=== PATIENT | male | born 1995 | race Caucasian/White ===

== ENCOUNTER 2024-12-05 12:52 | Emergency (ER) | payer OTHER, SELFPAY ==
[2024-12-05 13:07] VITALS: BP 141/68; PULSE 76; RESP 18; TEMP 36.4; O2SAT 100
[2024-12-05] MEDS: TETANUS,DIPHTHERIA,AC PERTUSSIS ADULT (0.5 ML) BOOSTRIX IM (13:21)
[2024-12-05] MEDS: LIDOCAINE 1% LOCAL INJ 2 ML AMPUL 8 ML INFILTRATE (13:21)
--- NOTE | 2024-12-05 14:01 | ED.GENADULT ---
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 He has noted bleeding from the wound since that time. He applied pressure with a dressing. He denies considerable pain but has numbness in the left thumb, around the site of the laceration. No loss of range of motion. Date of last tetanus unknown. He is not diabetic. He is right-hand dominant. He is not on blood thinners. Related Data Allergies Allergy/AdvReac Type Severity Reaction Status Date / Time No Known Allergies Allergy Verified 12/05/24 13:09 Review of Systems Review of Systems: CONSTITUTIONAL: Denies fever, chills, or sweats. EYES: Denies visual changes, redness, or discharge. ENT: Denies rhinorrhea, congestion, sore throat, or otalgia. CARDIOVASCULAR: Denies chest pain, palpitations, or edema. RESPIRATORY: Denies cough or dyspnea. GASTROINTESTINAL: Denies abdominal pain, nausea, vomiting, or diarrhea. GENITOURINARY: Denies dysuria or hematuria. SKIN: reports left thumb laceration MUSCULOSKELETAL: Denies back pain, joint pain, or myalgia. NEUROLOGIC: Reports numbness in the left thumb. Denies headache, dizziness, or weakness. PSYCHIATRIC: Denies anxiety or depression. [facility] Past Medical History Medical History No pertinent past medical history Surgical History Surgical History No pertinent past surgical history Family History Family History Mother Family history non-contributory Social History Social History Smoking status: Current every day smoker Tobacco type: e-cigarettes/vaping Gender identity (if verbalized by the patient): Male Spiritual care concerns: No Exam Narrative: GENERAL: Well-appearing, well-nourished, and in no acute distress. HEAD: Normocephalic, atraumatic. EYES: PERRLA and EOMI. ENT: Nares clear, no rhinorrhea or epistaxis. Mucous membranes moist. Oropharynx without tonsillar hypertrophy exudate or other lesions. Bilateral TMs pearly kirby nonbulging NECK: Supple. No adenopathy or masses. No carotid bruits or JVD CHEST: Clear to auscultation. No respiratory distress. No wheezes rales or rhonchi HEART: Regular rate and rhythm. No murmur heard. Normal peripheral pulses. ABDOMEN: Soft, nontender, nondistended, normal active bowel sounds. EXTREMITIES: Normal range of motion. No edema. SKIN: Warm, dry, no rash. Approximately 3.5 cm linear laceration to the palmar aspect of left hand along the thumb. There is visible subcutaneous tissue. NEURO: No focal deficits. Alert and oriented x3. PSYCH: Normal mood and affect. Course Course Emergency Course: this is a 29-year-old male who presented for evaluation of laceration to the left thumb. He declined x-ray. No loss of range of motion and low likelihood for retained foreign body. Wound was thoroughly cleaned and closed with eight sutures. Patient tolerated well. Tetanus was updated. Advised on wound care. Will discharge with cephalexin. Follow-up with primary provider. Go to the ER for worsening symptoms. Patient in agreement with plan of care. Level of Care: Express Care Visit Vital Signs Vital signs: Vital Signs Temperature 36.4 C 12/05/24 13:07 Pulse Rate 76 12/05/24 13:07 Respiratory Rate 18 12/05/24 13:07 Blood Pressure 141/68 H 12/05/24 13:07 Pulse Oximetry 100 12/05/24 13:07 Oxygen Delivery Room Air 12/05/24 13:07 Temperature 36.4 C 12/05/24 13:07 Pulse Rate 76 12/05/24 13:07 Respiratory Rate 18 12/05/24 13:07 Blood Pressure 141/68 H 12/05/24 13:07 Pulse Oximetry 100 12/05/24 13:07 Oxygen Delivery Room Air 12/05/24 13:07 Procedures Laceration Laceration 1: Date: 12/05/24 Time: 14:10 Site: hand (left thumb) Side (If applicable): left Size (cm): 3.5 Description: linear Local Anesthetic: lidocaine 1% Amount of anesthesia used (mL): 14 Pre-repair: wound explored, irrigated and irrigated extensively ====== Skin Level ====== Skin layer closed with: nylon Size (cm): 4-0 and 5-0 Number of sutures: 8 Technique: simple, interrupted ====== Subcutaneous Layer ====== ====== Muscle Layer ====== ====== Tendon Layer ====== Medical Decision Making Vital Signs Vital Signs: Vital Signs Temperature 36.4 C 12/05/24 13:07 Pulse Rate 76 12/05/24 13:07 Respiratory Rate 18 12/05/24 13:07 Blood Pressure 141/68 H 12/05/24 13:07 Pulse Oximetry 100 12/05/24 13:07 Oxygen Delivery Room Air 12/05/24 13:07 Temperature 36.4 C 12/05/24 13:07 Pulse Rate 76 12/05/24 13:07 Respiratory Rate 18 12/05/24 13:07 Blood Pressure 141/68 H 12/05/24 13:07 Pulse Oximetry 100 12/05/24 13:07 Oxygen Delivery Room Air 12/05/24 13:07 Discharge Plan Discharge Clinical Impression: Laceration of left thumb Patient Disposition: Home, Self-Care Condition: Stable Instructions: Antibiotic Form, Care For Your Stitches (ED), Finger Laceration (ED) Patient Language: Mexican Prescriptions: New cephalexin 500 mg capsule 500 mg PO Q6H Qty: 40 0RF Follow-up/Referrals: Edgar Molina MD [Physician] - Time of Disposition: 13:57
== END 2024-12-05 14:02 | disposition home or self-care (01) ==
PROVIDERS: Emergency Provider Nurse Practitioner
DX: S61.012A Laceration without foreign body of left thumb without damage to nail, initial encounter (principal); Z23 Encounter for immunization; F17.290 Nicotine dependence, other tobacco product, uncomplicated; W26.8XXA Contact with other sharp object(s), not elsewhere classified, initial encounter
CPT/HCPCS: 12002; 90471; 90715; 99213; G0463; J2003

== ENCOUNTER 2024-12-15 13:17 | Emergency (ER) | payer OTHER, SELFPAY ==
--- NOTE | 2024-12-15 13:38 | ED_ITS ---
HPI - Skin/Abscess/Foreign Bdy General Chief complaint: Skin/Abscess/Foreign Body Stated complaint: suture removal Time Seen by Provider: 12/15/24 13:37 Source: patient Mode of arrival: ambulatory Limitations: no limitations History of Present Illness HPI narrative: Patient is a 29-year-old male who presents for suture removal. Patient had 8 stitches placed on left thumb 12/05. Related Data Home Medications ?Medication ?Instructions ?Recorded ?Confirmed ?Last Taken ?Type No Home Medications 12/15/24 12/15/24 Unknown History Allergies Allergy/AdvReac Type Severity Reaction Status Date / Time No Known Allergies Allergy Verified 12/15/24 14:16 Review of Systems Review of Systems: All systems reviewed & are unremarkable except as noted in HPI and below Constitutional: Constitutional: Denies body ache(s), Denies chills, Denies fatigue, Denies fever(s), Denies headache(s), Denies malaise and Denies weakness Eyes: Eyes: Denies blurry vision, Denies irritation and Denies loss of vision ENT: Denies otalgia, Denies headache(s), Denies nasal discharge, Denies sinus pain and Denies sore throat Cardiovascular: Cardiovascular: Denies chest pain, Denies irregular heart rhythm and Denies dyspnea Respiratory: Respiratory: Denies dyspnea Gastrointestinal: Gastrointestinal: Denies abdominal pain, Denies melena, Denies hematochezia, Denies diarrhea, Denies nausea and Denies vomiting Musculoskeletal: Musculoskeletal: Denies back pain, Denies myalgias and Denies arthralgias Integumentary/Breasts: Skin/Breast: Denies pruritus, Denies rash and Reports wounds Neurologic: Denies headache(s), Denies loss of vision and Denies weakness Psychiatric: Psychiatric: Reports no additional psychiatric complaints Endocrine: Endocrine: Denies fatigue PMFSH Past Medical History Medical History No pertinent past medical history Surgical History Surgical History No pertinent past surgical history Family History Family History Mother Family history non-contributory Social History Social History (Reviewed 12/15/24 @ 14:15 by NIRU Zaldivar Smoking status: Current every day smoker Tobacco type: e-cigarettes/vaping Gender identity (if verbalized by the patient): Male Spiritual care concerns: No Comments At time of signature, agree with nursing past medical, surgical, social and family history. There is no relevant family history pertinent to the presenting complaint. Exam Const: General: cooperative, healthy appearing, comfortable, no acute distress and well nourished Nutritional Appearance: well nourished Orientation/consciousness: patient oriented x3 Limitations: no limitations HENMT: Head: normal to inspection, normocephalic and atraumatic Ears: hearing grossly normal bilaterally and external ears normal Face/Nose/Sinus: Normal external nose present, normal facial exam and face symmetric Face and sinus: normal facial exam and face symmetric Mouth: Yes lip normal Eyes: General: appearance normal, both eyes and all related structures Alignment and Position: alignment normal and position normal Periorbital: periorbital findings normal Eyelids: eyelids normal Pupils: Equal, round and reactive pupils present EOM: EOMs intact bilaterally Neck: Neck: normal visual inspection, full ROM and supple Chest: Chest palpation & inspection: normal inspection of the chest Resp: Effort & Inspection: normal respiratory effort and able to speak in complete sentences Auscultation: clear to auscultation bilaterally Cardio: Rate: regular rate Rhythm: regular rhythm Heart sounds: S1 normal heart sound present and S2 normal heart sound present GI: Inspection: normal to inspection Skin: General skin exam: normal color and no rashes or lesions noted Neuro: General: patient oriented x3 and moves all extremities Cranial nerves: Yes Equal, round and reactive pupils present Speech: normal speech Gait exam (Neuro): Normal gait present Extrem: General: normal to inspection, full ROM and no edema Left upper extremity: hand laceration (Laceration to left thumb healing well) Psych: Appearance: grossly normal and well kempt Mental Status: mental status grossly normal Speech and movement: Normal speech and movement present Affect: normal affect Attitude: cooperative Thought process: Normal thought process present Course Course Emergency Course: Patient is aware of diagnosis, understands and agrees to treatment plan. Anticipatory guidance given. Patient agrees to follow-up as directed and is awar e of reasons to seek care at the emergency department. Portions of this record may have been created with voice recognition software Level of Care: Express Care Visit Vital Signs Vital signs: Vital Signs Temperature 37.1 C 12/15/24 13:48 Pulse Rate 60 12/15/24 13:48 Respiratory Rate 18 12/15/24 13:48 Blood Pressure 151/57 H 12/15/24 13:48 Pulse Oximetry 100 12/15/24 13:48 Oxygen Delivery Room Air 12/15/24 13:48 Temperature 37.1 C 12/15/24 13:48 Pulse Rate 60 12/15/24 13:48 Respiratory Rate 18 12/15/24 13:48 Blood Pressure 151/57 H 12/15/24 13:48 Pulse Oximetry 100 12/15/24 13:48 Oxygen Delivery Room Air 12/15/24 13:48 Reviewed MDM - Skin/Abscess/Foreign Bdy MDM Narrative Medical decision making narrative: Eight sutures removed. Surrounding area without erythema, swelling or infection. Pt well hydrated appearing, in no respiratory distress, hemodynamically stable. Recommend supportive care. The patient is stable at time of discharge the clinical impression was discussed and the patient was given the opportunity to ask questions, which were addressed as completely as possible given the information available at present. Anticipatory guidance and return to care precautions were discussed and the importance of primary care follow-up was stressed and encouraged. The patient voiced understanding of the plan, indications to return, and the need for follow-up. Exam findings show no acute concerns or changes Patient is appropriate for outpatient treatment and follow-up. Differential Diagnosis Differential diagnosis: Likely other (Suture removal) Medical Records Attestation: I reviewed the patient's medical records. Discharge Plan Discharge Clinical Impression: Encounter for removal of sutures Patient Disposition: Home, Self-Care Condition: Stable Instructions: Stitches Removal (ED) Additional Instructions: After sutures are removed, keep your scar out of the sun. You may use OTC silicone pad and/or scar massage with ointment (for 10-15 min a day) after one month. Talk to your doctor if you think you are developing a keloid. If you are having a hard time finding a physician please call our [facility] liaison at [phone]. Your blood pressure was elevated above 120/80 today at Urgent Care. This puts you above the threshold for follow up visit with a primary care provider. High blood pressure does not usually cause any symptoms, however it may lead to kidney failure, stroke, heart disease just to name a few if untreated . Many people are anxious when seeing a provider or nurse. As a result, you are not diagnosed with hypertension at this time unless your blood pressure is persistently high at two office visits at least one week apart. Some things that can help lower blood pressure are lifestyle modifications, such as light exercise, decreased salt in diet, and weight loss. It is important to follow up with a PCP about this within 1 week. Patient Language: Jordanian Prescriptions: No Action No Home Medications Follow-up/Referrals: PHYSICIAN,MORGUE TECHNICIAN [Primary Care Provider] - Sylvie Negrete DO [Physician] - 3 Days ([facility]) Time of Disposition: 14:21
[2024-12-15 13:48] VITALS: BP 151/57; PULSE 60; RESP 18; TEMP 37.1; O2SAT 100
--- OUTSIDE RECORDS SUMMARY | 2024-12-20 09:02 | XMS_ITS | Patient Health Summary ---
Author Organization [facility] Address [address] [place] [address] Care Team Providers Care Pharmacy Clerk Name Role Phone Josh Shields MD Primary Care Provider Note from [facility],non-owned Affiliates and Associated Physician Practices is amultiple site organization consisting of ambulatory clinics and hospital sitesin [place], [place], [place] and [place]. This disclosure is being madepursuant to the Care Everywhere program and may not contain all information available regarding this patient. Last updated 18.[facility] Social History Tobacco Use Types Packs/Day Years Used Date Smoking Tobacco: Never Assessed Sex and Gender Information Value Date Recorded Sex Assigned at Not on file Gender Identity Not on file Sexual Orientation Not on file Procedures * ECHO CONSULT - PEDIATRIC(Performed 08/16/2012) Performed for Palpitations * EKG 15-LEAD(Performed 08/16/2012) Performed for Palpitations Results * ECHO CONSULT - PEDIATRIC (08/16/2012 1:18 PM CDT) 08/16/2012 1:18 PM CDT Narrative [facility] - 08/16/2012 2:05 PM CDT , Congenital Transthoracic Echocardiogram 2D, M-mode, Doppler, and Color Doppler Name: DARIO RODRIGUEZ MR #: [id number] Study date: 08/16/2012 Age: 16 years : 1995 Gender: Male Ht: 71.6 in 71.6 in / 181.8 cm 181.8 cm Wt: 160.2 lb 160.2 lb / 72.8 kg 72.8 kg BSA: 1.93 m?? 1.93 m?? HR: BP: / age: JULES: Maternal age: NON DESTRUCTIVE EVALUATION TECHNICIAN: ??Jaquan Rich MD PEDIATRIC ECHO BILLING CHECKER: ??Vangie Cota [facility] RE[facility]ERRING PHYSICIAN: ??JOSH SHIELDS MD History: Signs/symptoms include palpitations and murmur. Anatomic relationships: Visceral situs: normal. Left sided cardiac apex (levocardia). Normal atrial situs (atrial situs solitus). Concordant atrioventricular alignment. Ventricular d-loop. Normal infundibular anatomy. Concordant ventriculoarterial connection. Normally related great vessels. Systemic veins: SVC: The superior vena cava and left innominate vein appeared of normal caliber, with normal flow. IVC: The inferior vena cava was normal in size and course. IVC Doppler: The flow pattern was normal. Pulmonary veins: The pulmonary veins drained normally to the left atrium. Doppler: Doppler flow pattern was normal in the pulmonary vein(s). Right atrium: Size was normal. Left atrium: Size was normal. Atrial septum: No defect or patent foramen ovale was identified. Tricuspid valve: The valve structure was normal. Doppler: The transtricuspid velocity was within the normal range. There was no evidence for tricuspid stenosis. There was trivial regurgitation. Mitral valve: Valve structure was normal. There is no mitral valve prolapse. Doppler: The transmitral velocity was within the normal range. There was no evidence for stenosis. There was trivial regurgitation. Right ventricle: The cavity size was normal. Wall thickness was normal. Systolic function was normal. RV outflow tract: There was no obstruction. Left ventricle: The cavity size was normal. Wall thickness was normal. Systolic function was normal. There were no regional wall motion abnormalities. Doppler: Left ventricular diastolic function parameters were normal. LV outflow tract: There was no outflow obstruction. Ventricular septum: Thickness was normal. The septum was intact. Pulmonic valve: Leaflets exhibited normal thickness and normal cuspal separation. Doppler: The transpulmonic velocity was within the normal range. There was trivial regurgitation. Aortic valve: The valve was trileaflet. Leaflets exhibited normal thickness and normal cuspal separation. Doppler: Transaortic velocity was within the normal range. There was no stenosis. There was no regurgitation. Pulmonary artery: The main pulmonary artery was normal, with normal-sized, confluent proximal branch pulmonary arteries. Aorta: There was a normal-sized aortic arch with normal brachiocephalic branching. The root was normal in size. The ascending aorta size was normal. Coronary arteries: The size and course of the left main, proximal left anterior descending, and proximal right coronary arteries were normal. Right coronary artery: Flow was normal. Left main coronary artery: Flow was normal. Left anterior descending: Flow was normal. Extracardiac shunting: No ductal shunt was detected by Doppler. Pericardium: There was no pericardial effusion. The pericardium was normal in appearance. Impressions: - ??Diagnoses: Normal echocardiogram. - ??Summary: The heart is structurally normal with normal biventricular systolic function. There is trivial mitral regurgitation. Prepared and signed by Jaquan Rich MD Signed 08/16/2012 14:05:13 System measurement tables MM %FS: 45.1 % Ao Diam: 25.3 mm EDV(Teich): 115.2 ml EF(Teich): 76.3 % ESV(Teich): 27.3 ml IVSd: 10.2 mm IVSs: 15.1 mm LA Diam: 33.8 mm LA/Ao: 1.3 LVIDd: 49.4 mm LVIDs: 27.1 mm LVPWd: 10.9 mm LVPWs: 16.3 mm LVd Mass: 225.7 g LVd Mass (ASE): 192 g LVd Mass Ind (ASE): 99.5 g/m2 LVd Mass Index: 116.9 g/m2 LVs Mass: 173.6 g LVs Mass (ASE): 150.3 g LVs Mass Ind (ASE): 77.9 g/m2 LVs Mass Index: 89.9 g/m2 SV(Teich): 87.8 ml PW LPA Vmax: 1.3 m/s LPA maxP.4 mmHg Procedure Note 08/16/2012 , Congenital Transthoracic Echocardiogram 2D, M-mode, Doppler, and Color Doppler Name: DARIO RODRIGUEZ MR #: [id number] Study date: 08/16/2012 Age: 16 years : 1995 Gender: Male Ht: 71.6 in 71.6 in / 181.8 cm 181.8 cm Wt: 160.2 lb 160.2 lb / 72.8 kg 72.8 kg BSA: 1.93 m?? 1.93 m?? HR: BP: / age: JULES: Maternal age: NON DESTRUCTIVE EVALUATION TECHNICIAN: Jaquan Rich MD PEDIATRIC ECHO BILLING CHECKER: NIRMALA Griggs REFERRING PHYSICIAN: JOSH SHIELDS MD History: Signs/symptoms include palpitations and murmur. Anatomic relationships: Visceral situs: normal. Left sided cardiac apex (levocardia). Normal atrial situs (atrial situs solitus). Concordant atrioventricular alignment. Ventricular d-loop. Normal infundibular anatomy. Concordant ventriculoarterial connection. Normally related great vessels. Systemic veins: SVC: The superior vena cava and left innominate vein appeared of normal caliber, with normal flow. IVC: The inferior vena cava was normal in size and course. IVC Doppler: The flow pattern was normal. Pulmonary veins: The pulmonary veins drained normally to the left atrium. Doppler: Doppler flow pattern was normal in the pulmonary vein(s). Right atrium: Size was normal. Left atrium: Size was normal. Atrial septum: No defect or patent foramen ovale was identified. Tricuspid valve: The valve structure was normal. Doppler: The transtricuspid velocity was within the normal range. There was no evidence for tricuspid stenosis. There was trivial regurgitation. Mitral valve: Valve structure was normal. There is no mitral valve prolapse. Doppler: The transmitral velocity was within the normal range. There was no evidence for stenosis. There was trivial regurgitation. Right ventricle: The cavity size was normal. Wall thickness was normal. Systolic function was normal. RV outflow tract: There was no obstruction. Left ventricle: The cavity size was normal. Wall thickness was normal. Systolic function was normal. There were no regional wall motion abnormalities. Doppler: Left ventricular diastolic function parameters were normal. LV outflow tract: There was no outflow obstruction. Ventricular septum: Thickness was normal. The septum was intact. Pulmonic valve: Leaflets exhibited normal thickness and normal cuspal separation. Doppler: The transpulmonic velocity was within the normal range. There was trivial regurgitation. Aortic valve: The valve was trileaflet. Leaflets exhibited normal thickness and normal cuspal separation. Doppler: Transaortic velocity was within the normal range. There was no stenosis. There was no regurgitation. Pulmonary artery: The main pulmonary artery was normal, with normal-sized, confluent proximal branch pulmonary arteries. Aorta: There was a normal-sized aortic arch with normal brachiocephalic branching. The root was normal in size. The ascending aorta size was normal. Coronary arteries: The size and course of the left main, proximal left anterior descending, and proximal right coronary arteries were normal. Right coronary artery: Flow was normal. Left main coronary artery: Flow was normal. Left anterior descending: Flow was normal. Extracardiac shunting: No ductal shunt was detected by Doppler. Pericardium: There was no pericardial effusion. The pericardium was normal in appearance. Impressions: - Diagnoses: Normal echocardiogram. - Summary: The heart is structurally normal with normal biventricular systolic function. There is trivial mitral regurgitation. Prepared and signed by Jaquan Rich MD Signed 08/16/2012 14:05:13 System measurement tables MM %FS: 45.1 % Ao Diam: 25.3 mm EDV(Teich): 115.2 ml EF(Teich): 76.3 % ESV(Teich): 27.3 ml IVSd: 10.2 mm IVSs: 15.1 mm LA Diam: 33.8 mm LA/Ao: 1.3 LVIDd: 49.4 mm LVIDs: 27.1 mm LVPWd: 10.9 mm LVPWs: 16.3 mm LVd Mass: 225.7 g LVd Mass (ASE): 192 g LVd Mass Ind (ASE): 99.5 g/m2 LVd Mass Index: 116.9 g/m2 LVs Mass: 173.6 g LVs Mass (ASE): 150.3 g LVs Mass Ind (ASE): 77.9 g/m2 LVs Mass Index: 89.9 g/m2 SV(Teich): 87.8 ml PW LPA Vmax: 1.3 m/s LPA maxP.4 mmHg Ordering Provider Unlisted ECHO ORDER MELISSA [facility] [address] [place] [address] * EKG 15-LEAD (08/16/2012 1:02 PM CDT) Ventricular Rate 61 BPM CG MUSE Atrial Rate 61 BPM CG MUSE P-R Interval 148 ms CG MUSE QRS Duration ms 88 ms CG MUSE Q-T Interval ms 402 ms CG MUSE QTC Calculation (Bezet) 404 ms CG MUSE Calculated P Bowie 66 degrees CG MUSE Calculated R Bowie 74 degrees CG MUSE Calculated T Bowie 60 degrees CG MUSE Interpretation EKG Normal sinus rhythm Possible Left ventricular hypertrophy Confirmed by MD Layla, Jaquan ([id number]) on 08/16/2012 2:14:41 PM CG MUSE 08/16/2012 1:02 PM CDT 08/16/2012 2:14 PM CDT Narrative Transcriptions Document, Scanned - 08/16/2012 1:26 PM CDT Document, Scanned - 08/16/2012 2:15 PM CDT Ordering Provider Unlisted ECG ORDERA BLES CG MUSE Care Teams Pharmacy Clerk Relationship Specialty Start Date End Date Josh Shields MD [address] [place] [address] PCP - General Pediatrics 08/15/12
--- OUTSIDE RECORDS SUMMARY | 2024-12-20 09:02 | XMS_ITS | Clinical Summary ---
Author Organization [facility] Address [address] [place] [address] Care Team Providers Care News Library Director Name Role Phone Josh Shields MD Primary Care Provider [phone] Source Comments [facility] Affiliates and Associated Physician Practices is amultiple site organization consisting of ambulatory clinics and hospital sitesin [place], [place], [place] and [place]. This disclosure is being madepursuant to the Care Everywhere program and may not contain all information available regarding this patient. Last updated 18.[facility] Social History Tobacco Use Types Packs/Day Years Used Date Smoking Tobacco: Never Assessed Sex and Gender Information Value Date Recorded Sex Assigned at Not on file Gender Identity Not on file Sexual Orientation Not on file Plan of Treatment Health Maintenance Due Date Last Done Comments HIV SCREENING 2012 HEPATITIS C SCREENING 10/25/2015 DTAP/TDAP/TD VACCINES (1 - Tdap) 2016 HEPATITIS B VACCINE (1 of 3 - 19+ 3-dose series) 2016 COVID-19 VACCINE ( - 2023-2 5 season) 2024 INFLUENZA VACCINE (#1) 2024 DEPRESSION SCREENING 11/28/2024 ZOSTER VACCINE (1 of 2) 2047 HIB VACCINE Aged Out No longer eligi ble based on patient's age to complete this topic HPV VACCINE Aged Out No longer eligi ble based on patient's age to complete this topic MENINGOCOCCAL (Group B) VACCINE Aged Out No longer eligible based on patient's age to complete this topic MENINGOCOCCAL VACCINE Aged Out No giovanni gemini eligible based on patient's age to complete this topic PNEUMOCOCCAL VACCINE Aged Out No long er eligible based on patient's age to complete this topic Care Teams News Library Director Relationship Specialty Start Date End Date Josh Shields MD [address] [place] [address] PCP - General Pediatrics 08/15/12
--- OUTSIDE RECORDS SUMMARY | 2024-12-20 09:02 | XMS_ITS | Referral Summary ---
Author Organization [facility] Address [address] [place] [address] Care Team Providers Care Hog Scalder Name Role Phone Josh Shields MD Primary Care Provider [phone] Source Comments [facility],non-[facility] Affiliates and Associated Physician Practices is amultiple site organization consisting of ambulatory clinics and hospital sitesin [place], [place], [place] and [place]. This disclosure is being madepursuant to the Care Everywhere program and may not contain all information available regarding this patient. Last updated 18.[facility] Social History Tobacco Use Types Packs/Day Years Used Date Smoking Tobacco: Never Assessed Sex and Gender Information Value Date Recorded Sex Assigned at Not on file Gender Identity Not on file Sexual Orientation Not on file Plan of Treatment Not on file Care Teams Hog Scalder Relationship Specialty Start Date End Date Josh Shields MD [address] [place], [place] [id number] PCP - General Pediatrics 08/15/12
== END 2024-12-15 14:28 | disposition home or self-care (01) ==
PROVIDERS: Emergency Provider Nurse Practitioner Family
DX: S61.012D Laceration without foreign body of left thumb without damage to nail, subsequent encounter (principal); X58.XXXD Exposure to other specified factors, subsequent encounter
CPT/HCPCS: 99211; G0463